=== PATIENT | female | born 1990 | race American Indian/Alaskan Native ===

== ENCOUNTER 2016-12-05 21:17 | Emergency (ER) | payer SELFPAY | END 2016-12-05 21:35 | disposition left against medical advice (07) | LOC: ED 21:17 | DX: M25.569 Pain in unspecified knee (principal); V89.2XXA Person injured in unspecified motor-vehicle accident, traffic, initial encounter; Y93.9 Activity, unspecified; Y99.9 Unspecified external cause status; Y92.9 Unspecified place or not applicable ==

== ENCOUNTER 2019-01-07 14:10 | Emergency (ER) | payer SELFPAY ==
--- NOTE | 2019-01-07 14:29 | Event Note ---
ED Screening Note Date of service: 01/07/19 Time: 14:26 ED Screening Note: This is a 28 y.o. F. that presents to the ER with vaginal discharge x 1 year. She also reports recurrent toe nail fungus for 2 years after laser treatment and oral medication. This initial assessment/diagnostic orders/clinical plan/treatment(s) is/are subject to change based on patients health status, clinical progression and re- assessment by fellow clinical providers in the ED. Further treatment and workup at subsequent clinical providers discretion. Patient/guardian urged not to elope from the ED as their condition may be serious if not clinically assessed and managed. Initial orders include: Labs ACC for further evaluation
[2019-01-07 14:58] LABS: Bilirubin,Urine NEG (Negative); Blood,Urine NEG (Negative); Color,Urine Yellow (Yellow); HCG Qualitative,Urine Negative (Negative); Mucus,Urine FEW /HPF; Protein,Urine <15 mg/dL mg/dL (Negative); Urobilinogen,Urine < 2.0 mg/dL (<2.0)
--- NOTE | 2019-01-07 18:42 | Emergency Department Report ---
ED Female HPI - General Chief complaint: Urogenital-Female Stated complaint: VAGINAL DISCHARGE Time Seen by Provider: 01/07/19 14:25 Source: patient Mode of arrival: Ambulatory Limitations: No Limitations - History of Present Illness Initial comments: This is a 28-year-old female presents to ED complaining of vaginal discharge has been recurrent for the past year. Patient states the past week she has any onset of his vaginal discharge. Patient denies any dysuria, fever, chills, nausea or abdominal pain sign patient also complaining of fungus or toes. Patient states she is been to a bench [facility] with no relief. He denies any injuries MD Complaint: vaginal discharge - Related Data Allergies Allergy/AdvReac Type Severity Reaction Status Date / Time levetiracetam [From Keppra] Allergy Rash Verified 01/07/19 14:13 phenytoin [From Dilantin] Allergy Rash Verified 01/07/19 14:13 ED Review of Systems ROS: Stated complaint: VAGINAL DISCHARGE Other details as noted in HPI Comment: All other systems reviewed and negative ED Past Medical Hx - Past Medical History Previous Medical History?: No - Surgical History Past Surgical History?: No - Social History Smoking Status: Never Smoker Substance Use Type: None ED Physical Exam - General Limitations: No Limitations General appearance: alert, in no apparent distress - Head Head exam: Present: atraumatic, normocephalic - Eye Eye exam: Present: normal appearance - ENT ENT exam: Present: mucous membranes moist - Neck Neck exam: Present: normal inspection - Respiratory Respiratory exam: Present: normal lung sounds bilaterally. Absent: respiratory distress - Cardiovascular Cardiovascular Exam: Present: regular rate, normal rhythm. Absent: systolic murmur, diastolic murmur, rubs, gallop - GI/Abdominal GI/Abdominal exam: Present: soft, normal bowel sounds. Absent: distended, tenderness, guarding, mass - External exam: Present: normal external exam Speculum exam: Present: normal speculum exam, cervical discharge Bi-manual exam: Present: normal bi-manual exam. Absent: cervical motion tendernes, adnexal tenderness - Extremities Exam Extremities exam: Present: normal inspection, full ROM - Back Exam Back exam: Present: normal inspection, full ROM. Absent: tenderness, CVA tenderness (R), CVA tenderness (L) - Neurological Exam Neurological exam: Present: alert, oriented X3 - Psychiatric Psychiatric exam: Present: normal affect, normal mood - Skin Skin exam: Present: warm, dry, intact, normal color. Absent: rash ED Course Vital Signs 01/07/19 14:25 Temperature 98.1 F Pulse Rate 70 Respiratory 19 Rate Blood Pressure 107/49 [Left] O2 Sat by Pulse 98 Oximetry ED Medical Decision Making - Medical Decision Making 28-year-old female presents with vaginitis Wet prep, urinalysis, urine. See test is negative. Discussed findings with the patient. Discussed patient to follow-up with [facility] as referred. 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 Referrals given. Vital signs are normal patient is in no acute distress. Critical care attestation.: If time is entered above; I have spent that time in minutes in the direct care of this critically ill patient, excluding procedure time. ED Disposition Clinical Impression: Vaginitis Disposition: - TO HOME OR SELFCARE Is pt being admited?: No Does the pt Need Aspirin: No Condition: Stable Instructions: Vaginitis (ED), Paronychia (ED) Additional Instructions: Make sure to follow up with the primary care physician as discussed. Take all your medications as you've been prescribed. If you have any worsening symptoms or develop new symptoms please return to ED immediately. Referrals: MINNIE JONES MD [Primary Care Provider] - 3-5 Days [facility] [Outside] - 3-5 Days [facility] [Outside] - 3-5 Days Forms: Accompanied Note, Work/School Release Form(ED) Time of Disposition: 18:47
[2019-01-07 19:09] VITALS: BP 124/70
== END 2019-01-07 19:09 | disposition home or self-care (01) ==
LOC: ED 14:10
DX: N76.0 Acute vaginitis (principal); Z88.8 Allergy status to other drugs, medicaments and biological substances
CPT/HCPCS: 81001; 81025; 87210; 87591